=== PATIENT | female | born 1975 | race Caucasian/White ===

== ENCOUNTER 2019-11-01 19:11 | Emergency (ER) | payer BC, OTHER ==
[~2019-11-01] VITALS: Ht 170.2 cm; Wt 77.5 kg
[2019-11-01 21:21] VITALS: BP 149/89
--- NOTE | 2019-11-01 21:40 | NUR ---
FACULTY I ON CALL MEDICAL ASSISTANT: PT DC'D FROM TRIAGE. DC EDUCATION PROVIDED, PT DEMONSTRATES UNDERSTANDING. PT AMBULATED STEADILY TO DC WITH RN
== END 2019-11-01 21:42 | disposition home or self-care (01) ==
LOC: ED 21:40
DX: M79.661 Pain in right lower leg (principal); M79.89 Other specified soft tissue disorders
CPT/HCPCS: 99284